=== PATIENT | male | born 1970 | race Caucasian/White ===

== ENCOUNTER 2021-12-31 11:59 | Emergency (ER) | payer OTHER, SELFPAY ==
[2021-12-31 12:22] VITALS: BP 129/95; PULSE 104; RESP 20; TEMP 36.6; O2SAT 98; BMI 38.3
--- NOTE | 2021-12-31 12:26 | DI.RAD.S_ITS ---
PROCEDURE: XR SHOULDER RT MIN 2V INDICATIONS: fall TECHNIQUE: 3 views of the shoulder were acquired. COMPARISON: None. FINDINGS: Bones: No fractures or dislocations. No suspicious bony lesions. Visualized ribs appear intact. Soft tissues: No suspicious soft tissue calcifications. IMPRESSION: No visualized acute fracture or dislocation. However, if clinical concern and/or pain persist, short interval imaging followup in 7-10 days is recommended, as occult injury cannot be definitively excluded. Dictated by: Mirian Delgado M.D. on 12/31/2021 at 12:55 Approved by: Mirian Delgado M.D. on 12/31/2021 at 12:58
[2021-12-31 15:20] VITALS: BP 120/90; PULSE 95; RESP 18; TEMP 36.6; O2SAT 98
--- NOTE | 2021-12-31 19:57 | ED.UPPEXIN ---
HPI - Extremity Injury (Upper) <Jarrell Vasquez PA-C - Last Filed: 12/31/21 20:05> General Chief Complaint: Extremity Injury, Upper Stated Complaint: rt rotal cuff injury Time Seen by Provider: 12/31/21 12:36 Source: patient Mode of arrival: Ambulatory History of Present Illness HPI narrative: 51-year-old male presents to the ED with right shoulder pain for 5 days. Patient states that he fell 5 days ago, tried to stop his fall with his right arm, causing his right shoulder to be injured. Patient states that the front of the shoulder is painful. Patient has most pain when he tries to abduct and extend his arm. Patient denies numbness, tingling, weakness. Related Data Allergies Allergy/AdvReac Type Severity Reaction Status Date / Time metoclopramide [From Reglan] Allergy Verified 12/31/21 12:26 Review of Systems <Jarrell Vasquez PA-C - Last Filed: 12/31/21 20:05> Review of Systems ROS Unobtainable: All systems reviewed & are unremarkable except as noted in HPI and below Constitutional Constitutional: Denies chills, Denies fatigue, Denies fever(s), Denies frequent falls, Denies lethargy and Denies weakness Eyes Eyes: Denies change in vision, Denies eye discharge, Denies irritation and Denies loss of vision ENT Ears, Nose, Mouth, and Throat: Denies change in voice, Denies dizziness, Denies neck pain, Denies sore throat and Denies throat swelling Cardiovascular Cardiovascular: Denies chest pain, Denies irregular heart rhythm, Denies lightheadedness, Denies palpitations, Denies dyspnea, Denies dyspnea on exertion and Denies orthopnea Respiratory Respiratory: Denies cough, Denies dyspnea, Denies dyspnea on exertion and Denies wheezing Gastrointestinal Gastrointestinal: Denies abdominal pain, Denies change in bowel habits, Denies diarrhea, Denies nausea and Denies vomiting Genitourinary Genitourinary: Denies hematuria, Denies flank pain, Denies urinary incontinence and Denies urinary urgency Musculoskeletal Musculoskeletal: Denies back pain, Denies muscle weakness, Denies neck pain, Denies numbness and Denies tingling Comments: Right shoulder pain Integumentary/Breasts Skin/Breast: Denies pruritus, Denies erythema, Denies rash and Denies wounds Neurologic Neurologic: Denies behavioral changes, Denies confusion, Denies dizziness, Denies frequent falls, Denies loss of vision, Denies numbness, Denies tingling and Denies weakness Psychiatric Psychiatric: Denies anxiety, Denies behavioral changes, Denies confusion, Denies depression, Denies homicidal ideation and Denies suicidal ideation Endocrine Endocrine: Denies fatigue, Denies flushing and Denies palpitations Hematologic/Lymphatic Hematologic/Lymphatic: Denies easy bruising Allergic/Immunologic Allergic/Immunologic: Denies urticaria, Denies throat swelling and Denies wheezing Patient History <Jarrell Vasquez PA-C - Last Filed: 12/31/21 20:05> Social History Smoking Status: Never smoker Smoking Status: Never smoker Substance Use Type: does not use Exam <Jarrell Vasquez PA-C - Last Filed: 12/31/21 20:05> Narrative Exam Narrative: Const General:?cooperative, healthy appearing and comfortable HENHI Head:?normal to inspection Ears:?hearing grossly normal bilaterally Nose:?external nose normal Face and sinus:?normal facial exam and sinuses nontender Mouth:?oral mucosae normal Throat:?posterior oropharynx normal Eyes General:?appearance normal, both eyes and all related structures Neck Neck:?normal visual inspection and no lymphadenopathy noted Resp Effort & Inspection:?normal respiratory effort Auscultation:?clear to auscultation bilaterally Cardio Rate:?regular rate Rhythm:?regular rhythm Musculoskeletal Right shoulder tender to palpation on the anterior aspect. Patient's range of motion is limited by the injury. Patient has trouble abducting, extending the right arm. Patient is neurovascularly intact. Neuro General:?patient alert, patient awake and patient oriented x3 Initial Vital Signs Initial Vital Signs: Vital Signs Temperature 97.8 F 12/31/21 12:22 Pulse Rate 104 H 12/31/21 12:22 Respiratory Rate 20 12/31/21 12:22 Blood Pressure 129/95 H 12/31/21 12:22 Pulse Oximetry 98 12/31/21 12:22 Oxygen Delivery Method 12/31/21 12:22 <Mariposa Pedraza DO - Last Filed: 01/01/22 02:56> Initial Vital Signs Initial Vital Signs: Vital Signs Temperature 97.8 F 12/31/21 12:22 Pulse Rate 104 H 12/31/21 12:22 Respiratory Rate 20 12/31/21 12:22 Blood Pressure 129/95 H 12/31/21 12:22 Pulse Oximetry 98 12/31/21 12:22 Oxygen Delivery Method 12/31/21 12:22 Course <Jarrell Vasquez PA-C - Last Filed: 12/31/21 20:05> Orders Ordered: ED Orders 12/31/21 12:26 XR shoulder RT min 2V Stat Vital Signs Vital signs: Vital Signs - 8 hr 12/31/21 12:22 12/31/21 15:20 Temperature 97.8 F 98 F Pulse Rate 104 H 95 H Respiratory Rate 20 18 Blood Pressure 129/95 H 120/90 Pulse Oximetry 98 98 Oxygen Delivery Method Room Air Room Air <Mariposa Pedraza DO - Last Filed: 01/01/22 02:56> Orders Ordered: ED Orders 12/31/21 12:26 XR shoulder RT min 2V Stat Vital Signs Vital signs: Vital Signs - 8 hr 12/31/21 12:22 12/31/21 15:20 Temperature 97.8 F 98 F Pulse Rate 104 H 95 H Respiratory Rate 20 18 Blood Pressure 129/95 H 120/90 Pulse Oximetry 98 98 Oxygen Delivery Method Room Air Room Air MDM - Extremity Injury (Upper) <Jarrell Vasquez PA-C - Last Filed: 12/31/21 20:05> Imaging Data Extremity x-ray #1: Radiologist's Impression: PROCEDURE:? XR SHOULDER RT MIN 2V ? INDICATIONS:? fall ? TECHNIQUE:? 3 views of the shoulder were acquired.? ? COMPARISON:? None. ? FINDINGS:? ? Bones:? No fractures or dislocations.? No suspicious bony lesions.? Visualized ribs appear intact.? ? Soft tissues:? No suspicious soft tissue calcifications.? ? IMPRESSION:? No visualized acute fracture or dislocation. However, if clinical concern and/or pain persist, short interval imaging followup in 7-10 days is recommended, as occult injury cannot be definitively excluded. ? ? Dictated by: Mirian Delgado M.D. on 12/31/2021 at 12:55 ? ? Approved by: Mirian Delgado M.D. on 12/31/2021 at 12:58 ? MDM Narrative Medical decision making narrative: 51-year-old male presents to the ED with right shoulder pain for 5 days. Concern for fracture/dislocation versus musculoskeletal sprain/strain. X-ray was negative for any acute findings. Patient's symptoms likely due to a musculoskeletal sprain/strain such as a rotator cuff injury. Patient was fitted with a sling for comfort. Advise ibuprofen. Advise follow-up with PCP and referral to PT, ortho. ED return precautions discussed with patient. Patient verbalized understanding. Discharge Plan Departure Patient Disposition: Home Clinical Impression: Acute shoulder pain Instructions: DI for Shoulder Sprain Activity Restrictions/Additional Instructions: You were evaluated in the emergency department for right-sided shoulder pain. Your x-ray did not show any fractures or dislocations. Your symptoms are likely due to a rotator cuff injury. You may take 800 mg of ibuprofen every 8 hours to reduce the pain and inflammation. You have been fitted in a sling for comfort. Please follow-up with ortho and Physical therapy for further evaluation and treatment. Return to the ED if you experience numbness, tingling, weakness. Visit Report Forms: Patient Portal/API <Mariposa Pedraza DO - Last Filed: 01/01/22 02:56> Cosign ED Attending Sebastianature Attestation: I was immediately available in the department for consultation. Documentation has been reviewed. I agree with assessment and plan.
== END 2021-12-31 15:20 | disposition home or self-care (01) ==
PROVIDERS: Emergency Provider Student in an Organized Health Care Education/Training Program
DX: M25.511 Pain in right shoulder (principal); W18.30XA Fall on same level, unspecified, initial encounter
CPT/HCPCS: 73030; 99283